=== PATIENT | male | born 1985 | race Caucasian/White ===

== ENCOUNTER 2024-09-12 07:56 | Emergency (ER) | payer SELFPAY ==
[~2024-09-12] VITALS: Ht 167.6 cm; Wt 70.0 kg
[2024-09-12 07:57] VITALS: BP 186/95; PULSE 85; RESP 14; TEMP 37; O2SAT 99
== END 2024-09-12 08:59 | disposition left against medical advice (07) ==
LOC: ER 08:06
DX: R42 Dizziness and giddiness (principal); F10.129 Alcohol abuse with intoxication, unspecified; Z53.21 Procedure and treatment not carried out due to patient leaving prior to being seen by health care provider; Y90.9 Presence of alcohol in blood, level not specified